=== PATIENT | male | born 1985 | race African-American/Black ===

== ENCOUNTER 2016-11-04 13:46 | Emergency (ER) | payer OTHER ==
[2016-11-04 14:46] VITALS: BP 158/78
--- NOTE | 2016-11-04 16:04 | UC ---
Respiratory Complaint HPI - HPI Summary HPI Summary: Started getting sick about [address], nasal hero, cough, shortly after he had son sick with URI sx for the weekend. Cough and fatigue continue. Feels "paranoid" because he had sexual exposure to someone over a year ago who disclosed HIV+ status and told him she didn't test positive for a year, and they only found it after a prolonged respiratory illness. Pt has had serial testing done since this sexual relationship, all negative. Requests tests today. Denies fever or trouble breathing. - History of Current Complaint Chief Complaint: UCRespiratory Stated Complaint: URI Time Seen by Provider: 11/04/16 15:32 Hx Obtained From: Patient Onset/Duration: Gradual Onset, Lasting Weeks Timing: Constant Character: Cough: Productive Aggravating Factors: Recumbent Position Alleviating Factors: Upright Position Associated Signs And Symptoms: Positive: Nasal Congestion. Negative: Dyspnea, Fever, Chills, Wheezing - Allergies/Home Medications Allergies/Adverse Reactions: Allergies Allergy/AdvReac Type Severity Reaction Status Date / Time No Known Allergies Allergy Verified 04/25/16 21:44 PMH/Surg Hx/FS Hx/Imm Hx Previously Healthy: Yes - Surgical History Surgical History: None - Family History Known Family History: Positive: Cardiac Disease, Hypertension Negative: Respiratory Disease - Social History Lives: Alone Alcohol Use: Occasionally Substance Use Type: None Smoking Status (MU): Current Every Day Smoker Review of Systems Constitutional: Negative Skin: Negative Eyes: Negative ENT: Sore Throat, Nasal Discharge Respiratory: Cough Cardiovascular: Negative Gastrointestinal: Negative Genitourinary: Negative Motor: Negative Neurovascular: Negative Musculoskeletal: Negative Neurological: Negative Psychological: Negative All Other Systems Reviewed And Are Negative: Yes Physical Exam Triage Information Reviewed: Yes Appearance: Well-Appearing, No Pain Distress, Well-Nourished Vital Signs: Initial Vital Signs Temp 99.4 F 11/04/16 14:42 Pulse 98 11/04/16 14:42 Resp 18 11/04/16 14:42 BP 158/78 11/04/16 14:42 Pulse Ox 100 11/04/16 14:42 Vital Signs Reviewed: Yes Eye Exam: Normal Eyes: Positive: Conjunctiva Clear ENT Exam: Normal ENT: Positive: Normal ENT inspection, Hearing grossly normal, Pharynx normal, TMs normal. Negative: Tonsillar swelling, Tonsillar exudate Dental Exam: Normal Neck exam: Normal Neck: Positive: Supple, Nontender, No Lymphadenopathy Respiratory Exam: Normal Respiratory: Positive: Chest non-tender, Lungs clear, Normal breath sounds, No respiratory distress, No accessory muscle use Cardiovascular Exam: Normal Cardiovascular: Positive: RRR, No Murmur Musculoskeletal Exam: Normal Neurological Exam: Normal Neurological: Positive: Alert Psychological Exam: Normal Skin Exam: Normal UC Diagnostic Evaluation - Laboratory O2 Sat by Pulse Oximetry: 100 Respiratory Course/Dx - Differential Dx/Diagnosis Provider Diagnoses: URI. post-viral cough. elevated blood pressure due to anxiety Discharge - Discharge Plan Condition: Stable Disposition: HOME Prescriptions: Albuterol HFA INHALER* [Ventolin HFA Inhaler*] 1 - 2 puff INH Q4H PRN #1 mdi PRN Reason: wheeze, cough Benzonatate CAP* [Tessalon CAP*] 100 mg PO TID PRN #30 cap PRN Reason: Cough Patient Education Materials: Upper Respiratory Infection (ED) Referrals: No Primary Care Phys,NOPCP [Primary Care Provider] - Additional Instructions: POST-VIRAL COUGH: A very common cause of persistent cough is called "post-viral cough syndrome." During a viral infection, the virus can irritate your bronchial tubes. Then even after the infection is over, you may continue to cough. Your cough is left over from your recent viral infection. You do not show evidence of a continuing viral infection,bronchitis or pneumonia. You do not need antibiotics at this time. It may be helpful to use inhaled cool mist, throat lozenges, cough medication or bronchial inhalers to open up your bronchial tubes. We expect you will be improved in a week or two. Please get back to us if you have fever, chest pain, colored sputum, blood in the sputum, wheezing or shortness of breath.
== END 2016-11-04 16:10 | disposition home or self-care (01) ==
LOC: UCEAST 13:46
DX: J06.9 Acute upper respiratory infection, unspecified (principal); F17.200 Nicotine dependence, unspecified, uncomplicated
CPT/HCPCS: 36415; 86703; 99212; G0463

== ENCOUNTER 2017-10-29 10:56 | Emergency (ER) | payer OTHER ==
[2017-10-29] MEDS ORDERED: Morphine INJ* 10 MG/ML 1 ML CARPUJECT IV ONE (11:27)
[2017-10-29] MEDS ORDERED: Ondansetron INJ* 2 MG/ML VIAL IV ONE (11:29)
[2017-10-29] MEDS ORDERED: Morphine VIAL* 4 MG/ML VIAL (1 ml vial) IV ONE (11:47)
[2017-10-29 11:50] LABS: ABS Basophils 0 10^3/ul (0-0.2); ABS Eosinophils 0.1 10^3/ul (0-0.6); ABS Lymphocytes 1.6 10^3/ul (1.0-4.8); ABS Monocytes 0.6 10^3/ul (0-0.8); ABS Neutrophils 5.8 10^3/ul (1.5-7.7); ABS Nucleated RBC 0 10^3/ul; Eosinophil % 1.4 % (0-6); Hematocrit 41 % (42-52); Hemoglobin 14.3 g/dl (14.0-18.0); Lymphocyte % 19.6 % (25-47); Mean Corpuscular HGB Conc 35 g/dl (31-36); Mean Corpuscular Hemoglobin 32 pg (27-31); Mean Corpuscular Volume 92 fL (80-94); Mean Platelet Volume 9.9 um3 (7.4-10.4); Nucleated Red Blood Cells % 0.2; Platelet Count 146 10^3/ul (150-450); Red Cell Distribution Width 14 % (10.5-15); White Blood Count 8.3 10^3/ul (3.5-10.8)
[2017-10-29 12:08] LABS: Uric Acid 6.1 mg/dL (4.4-7.6)
--- NOTE | 2017-10-29 12:12 | RAD ---
INDICATION: RIGHT lower extremity pain and edema. COMPARISON: No relevant prior exams available on the [facility] [facility] [place]. TECHNIQUE: Asencio scale, color Doppler, and spectral analysis of the deep veins of the RIGHT lower extremity. Vessel compression, phasicity, and augmentation assessed. REPORT: The RIGHT common femoral, great saphenous, profunda femoral, femoral, popliteal, peroneal, and posterior tibial veins are patent. Patency of the LEFT common femoral vein documented. IMPRESSION: No evidence for RIGHT lower extremity deep venous thrombosis.
[2017-10-29 12:34] VITALS: BP 129/87
--- NOTE | 2017-10-29 12:36 | RAD ---
HISTORY: Right knee pain COMPARISONS: None VIEWS: 4, Frontal, lateral, axial, and oblique views of the right knee FINDINGS: BONE DENSITY: Normal. BONES: There is no displaced fracture. JOINTS: There is no arthropathy. There is no suprapatellar joint effusion or lipohemarthrosis. ALIGNMENT: There is no dislocation. SOFT TISSUES: Unremarkable. OTHER FINDINGS: None. IMPRESSION: NO ACUTE OSSEOUS INJURY. IF SYMPTOMS PERSIST, RECOMMEND REPEAT IMAGING.
[2017-10-29 13:20] LABS: EGFR Non-African American 114.4 (>60)
--- NOTE | 2017-10-29 13:42 | ED ---
Naun Mcneil Stephanie, scribed for Tamir Donis MD on 10/29/17 at 1137 . Lower Extremity - HPI Summary HPI Summary: The pt is a 32 y/o M presenting to the ED with c/o R LE pain that began yesterday. Symptoms include R knee pain and R LE edema. His pain is described as a sharp pain. The pt states he was not active at onset. 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 His R LE cannot bear weight. He is a smoker and states he recently drove for 1.5 hours. He denies physical trauma. - History of Current Complaint Chief Complaint: EDExtremityLower Stated Complaint: RT LEG PAIN Time Seen by Provider: 10/29/17 11:11 Hx Obtained From: Patient Mechanism Of Injury: Other - NONE Onset of Pain: Days - 1 Onset/Duration: Days - 1 Severity Currently: Moderate Pain Intensity: 8 Pain Scale Used: 0-10 Numeric Timing: Constant Location: Is Discrete @ - R LE and R knee Associated Signs And Symptoms: Positive: Swelling, Knee Pain Aggravating Factor(s): Movement Alleviating Factor(s): Nothing Able to Bear Weight: No - Allergies/Home Medications Allergies/Adverse Reactions: Allergies Allergy/AdvReac Type Severity Reaction Status Date / Time No Known Allergies Allergy Verified 10/29/17 11:00 PMH/Surg Hx/FS Hx/Imm Hx Endocrine/Hematology History: Denies: Hx Diabetes, Hx Thyroid Disease Cardiovascular History: Reports: Hx Hypertension Respiratory History: Denies: Hx Asthma, Hx Chronic Obstructive Pulmonary Disease (COPD) GI History: Denies: Hx Ulcer Sensory History: Denies: Hx Legally Blind EENT History: Denies: Hx Deafness - Surgical History Surgery Procedure, Year, and Place: NONE Infectious Disease History: No Infectious Disease History: Denies: Hx Clostridium Difficile, Hx Hepatitis, Hx Human Immunodeficiency Virus (HIV), Hx of Known/Suspected MRSA, Hx Shingles, Hx Tuberculosis, Hx Known/ Suspected VRE, Hx Known/Suspected VRSA, History Other Infectious Disease, Traveled Outside the [place] in Last 30 Days - Family History Known Family History: Positive: Cardiac Disease, Hypertension Negative: Respiratory Disease - Social History Occupation: Employed Part-time Lives: Alone Alcohol Use: Occasionally Hx Substance Use: No Substance Use Type: Reports: None Hx Tobacco Use: Yes Smoking Status (MU): Current Every Day Smoker Have You Smoked in the Last Year: Yes Review of Systems Negative: Fever Positive: Edema - R LE, Other - L LE pain, R knee pain Negative: Slurred Speech All Other Systems Reviewed And Are Negative: Yes Physical Exam - Summary Physical Exam Summary: VITAL SIGNS: Reviewed. GENERAL: Patient is a well-developed and nourished MALE who is lying comfortable in the stretcher. Patient is not in any acute respiratory distress. HEAD AND FACE: No signs of trauma. No ecchymosis, hematomas or skull depressions. No sinus tenderness. EYES: PERRLA, EOMI x 2, No injected conjunctiva, no nystagmus. EARS: Hearing grossly intact. Ear canals and tympanic membranes are within normal limits. MOUTH: Oropharynx within normal limits. NECK: Supple, trachea is midline, no adenopathy, no JVD, no carotid bruit, no c- spine tenderness, neck with full ROM. CHEST: Symmetric, no tenderness at palpation LUNGS: Clear to auscultation bilaterally. No wheezing or crackles. CVS: Regular rate and rhythm, S1 and S2 present, no murmurs or gallops appreciated. ABDOMEN: Soft, non-tender. No signs of distention. No rebound no guarding, and no masses palpated. Bowel sounds are normal. EXTREMITIES: FROM in all major joints, no cyanosis or clubbing. There is limited ROM on R knee, swelling of R knee, tenderness along lateral and medial ligamentous area of LE, R calf tenderness NEURO: Alert and oriented x 3. No acute neurological deficits. Speech is normal and follows commands. SKIN: Dry and warm Triage Information Reviewed: Yes Vital Signs On Initial Exam: Initial Vitals Temp Pulse Resp BP Pulse Ox 99.5 F 75 16 138/73 98 10/29/17 10:58 10/29/17 10:58 10/29/17 10:58 10/29/17 10:58 10/29/17 10:58 Vital Signs Reviewed: Yes Diagnostics - Vital Signs Vital Signs Temp Pulse Resp BP Pulse Ox 10/29/17 10:58 99.5 F 75 16 138/73 98 - Laboratory Lab Results: Lab Results 10/29/17 10/29/17 10/29/17 Range/Units 11:42 11:42 11:42 WBC 8.3 (3.5-10.8) 10^3/ul RBC 4.50 (4.0-5.4) 10^6/ul Hgb 14.3 (14.0-18.0) g/dl Hct 41 L (42-52) % MCV 92 (80-94) fL MCH 32 H (27-31) pg MCHC 35 (31-36) g/dl RDW 14 (10.5-15) % Plt Count 146 L (150-450) 10^3/ul MPV 9.9 (7.4-10.4) um3 Neut % (Auto) 70.8 (38-83) % Lymph % (Auto) 19.6 L (25-47) % [place] % (Auto) 7.6 H (0-7) % Eos % (Auto) 1.4 (0-6) % Baso % (Auto) 0.6 (0-2) % Absolute Neuts (auto) 5.8 (1.5-7.7) 10^3/ul Absolute Lymphs (auto) 1.6 (1.0-4.8) 10^3/ul Absolute Monos (auto) 0.6 (0-0.8) 10^3/ul Absolute Eos (auto) 0.1 (0-0.6) 10^3/ul Absolute Basos (auto) 0 (0-0.2) 10^3/ul Absolute Nucleated RBC 0 10^3/ul Nucleated RBC % 0.2 ESR 10 (0-14) mm/Hr Sodium 138 L (139-145) mmol/L Potassium 3.7 (3.5-5.0) mmol/L Chloride 103 (101-111) mmol/L Carbon Dioxide 26 (22-32) mmol/L Anion Gap 9 (2-11) mmol/L BUN 8 (6-24) mg/dL Creatinine 0.79 (0.67-1.17) mg/dL Est GFR ( Amer) 147.1 (>60) Est GFR (Non-Af Amer) 114.4 (>60) BUN/Creatinine Ratio 10.1 (8-20) Glucose 145 H (70-100) mg/dL Lactic Acid 2.2 H* (0.5-2.0) mmol/L Uric Acid 6.1 (4.4-7.6) mg/dL Calcium 9.2 (8.6-10.3) mg/dL Total Bilirubin 0.30 (0.2-1.0) mg/dL AST 24 (13-39) U/L ALT 23 (7-52) U/L Alkaline Phosphatase 80 (34-104) U/L C-Reactive Protein 5.71 H (< 5.00) mg/L Total Protein 7.2 (6.4-8.9) g/dL Albumin 4.2 (3.2-5.2) g/dL Globulin 3.0 (2-4) g/dL Albumin/Globulin Ratio 1.4 (1-3) Result Diagrams: 10/29/17 11:42 10/29/17 11:42 Lab Statement: Any lab studies that have been ordered have been reviewed, and results considered in the medical decision making process. - Radiology Knee XRay Xray Interpretation: No Acute Changes Radiology Interpretation Completed By: Radiologist - NO ACUTE OSSEOUS INJURY. IF SYMPTOMS PERSIST, RECOMMEND REPEAT IMAGING. ED physician has reviewed this report. - Additional Comments Diagnostic Additional Comments: Venous Doppler Reveals: No evidence for RIGHT lower extremity deep venous thrombosis. ED physician has reviewed this report. Re-Evaluation - Re-Evaluation First Eval Re-Evaluation Time: 12:59 Change: Unchanged - ED physician discussed normal XRay and ultrasound results with the pt and discussed plan of discharge with the pt and the pt agrees. Lower Extremity Course/Dx - Course Assessment/Plan: This patient is a 32-year-old male presents to the emergency room with a chief complaint of right knee pain. The patient reports that the pain started yesterday he denies any history of trauma or heavy lifting. He reports also a history having the pain. 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 Patient isnt a smoker but does not have any past medical history significant for diabetes, hypertension, or dyslipidemia. Patient denies any shortness of breath or chest pain. Initially the patient was placed on a cardiac cath technician, IV axis was obtained, blood work was ordered as well as an ultrasound and an x-ray of the right lower extremity. Blood work results without any significant abnormality except for a CRP of 5.7. And lactic acid is 2.2. Ultrasound of the right lower extremity negative for DVT. X-ray of the knee impression: No acute osseous injury. The patient doesnt have an increased white blood cell count, however it did see appears is slightly elevated and his lactic acid is also slightly elevated. The knee is not warm or with any redness therefore have a low suspicion for septic joint. I discussed the case with Dr. Knapp from orthopedics and he agrees that since the patient doesnt have any severe swelling, redness in the knee, or increase in temperature this a low possibility for septic joint. I placed the patient in the knee immobilizer, given crutches and I gave a prescription for pain medications. I also gave instructions to the patient and his significant other to return to the emergency room. The patient the pickups any fever, increase in knee pain, or redness. The patient understands and agrees. Otherwise the patient will be following up with Dr. Knapp. - Diagnoses Differential Diagnosis/HQI/PQRI: Positive: Arthritis, Bursitis, Cellulitis, DVT , Fracture (Closed), Gout, Sprain, Strain, Other - Infected joint Provider Diagnoses: Knee pain Discharge - Sign-Out/Discharge Documenting (check all that apply): Discharge/Admit/Transfer - Discharge - Discharge Plan Condition: Stable Disposition: HOME Prescriptions: HYDROcodone/ACETAMIN 5-325 MG* [Marland 5-325 TAB*] 1 tab PO Q4H PRN #10 tab MDD 4 PRN Reason: Pain Ibuprofen TAB* [Motrin TAB* 800 MG] 800 mg PO ONCE #30 tab Patient Education Materials: Knee Pain (ED) [place] [facility] [place] [place] [place]] - 3 Days Daniel Knapp MD [Medical Doctor] - Additional Instructions: Return to the ED for any new or worsening symptoms. - Billing Disposition and Condition Condition: STABLE Disposition: HOME The documentation as recorded by the Naun owens Stephanie accurately reflects the service I personally performed and the decisions made by me, Tamir Donis MD.
== END 2017-10-29 13:40 | disposition home or self-care (01) ==
LOC: ED 10:56
DX: M25.561 Pain in right knee (principal); F17.200 Nicotine dependence, unspecified, uncomplicated; I10 Essential (primary) hypertension
CPT/HCPCS: 36415; 80053; 83605; 84550; 85025; 85652; 86140; 99283; J2270; J2405

== ENCOUNTER 2017-11-25 10:11 | Emergency (ER) | payer SELFPAY ==
[2017-11-25 11:52] VITALS: BP 119/69
--- NOTE | 2017-11-25 12:15 | ED ---
Respiratory - HPI Summary HPI Summary: 32-year-old male presents with cough for the past 3 days. He admits to occasional sore throat. He does not have history strep. He states that the pressure in his nose and his cough had been keeping him up at night. He has been taking Mucinex with minimal relief. No history of asthma. no Chest pain or shortness breath. No belly pain. No nausea and vomiting. He denies any headache. - History of Current Complaint Chief Complaint: UCGeneralIllness Stated Complaint: SORE THROAT,CONGESTED Time Seen by Provider: 11/25/17 11:54 Pain Intensity: 4 - Allergy/Home Medications Allergies/Adverse Reactions: Allergies Allergy/AdvReac Type Severity Reaction Status Date / Time No Known Allergies Allergy Verified 11/25/17 11:52 PMH/Surg Hx/FS Hx/Imm Hx Endocrine/Hematology History: Denies: Hx Diabetes, Hx Thyroid Disease Cardiovascular History: Reports: Hx Hypertension Respiratory History: Denies: Hx Asthma, Hx Chronic Obstructive Pulmonary Disease (COPD) GI History: Denies: Hx Ulcer Sensory History: Denies: Hx Legally Blind, Hx Deafness Opthamlomology History: Denies: Hx Legally Blind - Surgical History Surgery Procedure, Year, and Place: NONE Infectious Disease History: No Infectious Disease History: Denies: Hx Clostridium Difficile, Hx Hepatitis, Hx Human Immunodeficiency Virus (HIV), Hx of Known/Suspected MRSA, Hx Shingles, Hx Tuberculosis, Hx Known/ Suspected VRE, Hx Known/Suspected VRSA, History Other Infectious Disease, Traveled Outside the [place] in Last 30 Days - Family History Known Family History: Positive: Cardiac Disease, Hypertension Negative: Respiratory Disease - Social History Alcohol Use: Occasionally Hx Substance Use: No Substance Use Type: Reports: None Hx Tobacco Use: Yes Smoking Status (MU): Current Every Day Smoker Have You Smoked in the Last Year: Yes Review of Systems Negative: Fever Positive: Sore Throat, Nasal Discharge Negative: Chest Pain Positive: Cough. Negative: Shortness Of Breath All Other Systems Reviewed And Are Negative: Yes Physical Exam Triage Information Reviewed: Yes Vital Signs On Initial Exam: Initial Vitals Temp Pulse Resp BP Pulse Ox 99.8 F 82 18 119/69 98 11/25/17 11:46 11/25/17 11:46 11/25/17 11:46 11/25/17 11:46 11/25/17 11:46 Vital Signs Reviewed: Yes Appearance: Positive: Well-Appearing Skin: Positive: Warm, Dry Head/Face: Positive: Normal Head/Face Inspection Eyes: Positive: Normal, Conjunctiva Clear ENT: Positive: Normal ENT inspection, Pharyngeal erythema, Nasal drainage, TMs normal, Tonsillar swelling, Uvula midline, Other - Soft palate symmetric. Negative: Tonsillar exudate, Trismus, Muffled voice Neck: Positive: Supple, Nontender, No Lymphadenopathy Respiratory/Lung Sounds: Positive: Clear to Auscultation, Breath Sounds Present Cardiovascular: Positive: Normal, RRR Abdomen Description: Positive: Nontender, Soft Bowel Sounds: Positive: Present Musculoskeletal: Positive: Normal Neurological: Positive: Normal Psychiatric: Positive: Normal Diagnostics - Vital Signs Vital Signs Temp Pulse Resp BP Pulse Ox 11/25/17 11:46 99.8 F 82 18 119/69 98 - Laboratory Lab Statement: Any lab studies that have been ordered have been reviewed, and results considered in the medical decision making process. Disposition - Course Course Of Treatment: 32-year-old male presents with cough for the past 3 days. He admits to occasional sore throat. He does not have history strep. He states that the pressure in his nose and his cough had been keeping him up at night. He has been taking Mucinex with minimal relief. No history of asthma. no Chest pain or shortness breath. No belly pain. No nausea and vomiting. He denies any headache. On exam nasal congestion present. Nontender sinuses. Pharynx erythematous with 3+ tonsils. No exudate. Uvula midline. Soft palate symmetric. Lungs clear to auscultation. Will treat with Decadron and Tessalon for cough. Patient understands and agrees with plan. - Differential Dx - Cardiopulmonary Differential Diagnoses - Cardiopulmonary: Influenza, Laryngitis, Lower Resp Infection, Other - Pharyngitis - Diagnoses Provider Diagnoses: Upper respiratory infection Discharge - Sign-Out/Discharge Documenting (check all that apply): Discharge/Admit/Transfer - Discharge Plan Condition: Good Disposition: HOME Prescriptions: Benzonatate CAP* [Tessalon 100 MG CAP*] 100 mg PO TID PRN #21 cap PRN Reason: Cough Dexamethasone TAB* [Decadron TAB*] 4 mg PO DAILY #5 tab Fluticasone NASAL SPRAY 50MCG* [Flonase NASAL SPRAY 50MCG*] 2 spray BOTH NARES DAILY #1 btl Patient Education Materials: Upper Respiratory Infection (ED) Referrals: [facility] [place] [facility] [Outside] Additional Instructions: Use Flonase one spray each nostril twice a day Use Tessalon three times a day for cough take steroid once a day for 5 days Use saline in the nose for nasal congestion Can Tylenol or ibuprofen every 6 hours for pain Cough can last up to 4 weeks establish care with primary care physician Return to ED if develop any new or worsening symptoms - Billing Disposition and Condition Condition: GOOD Disposition: Home
== END 2017-11-25 12:20 | disposition home or self-care (01) ==
LOC: UCEAST 10:11
DX: J06.9 Acute upper respiratory infection, unspecified (principal); F17.200 Nicotine dependence, unspecified, uncomplicated; I10 Essential (primary) hypertension
CPT/HCPCS: 99212; G0463